=== PATIENT | female | born 1945 | race Caucasian/White ===

== ENCOUNTER → 2023-11-21 | Outpatient (CLI) | payer MEDICARE, SELFPAY ==
[2023-11-21 10:13] LABS: Absolute Lymphocyte Count 2.02 X10^3/uL (0.83-4.51); Absolute Neutrophil Count 5.1 X10^3/uL (2.0-7.7); Basophil# 0.06 X10^3/uL; Basophil% 0.7 % (0-1); Eosinophil# 0.35 X10^3/uL; Eosinophils% 4.4 % (0-5); Hematocrit 43.6 % (37-47); Hemoglobin 14.1 g/dL (12.0-15.0); Lymphocyte # 2.02 X10^3/ul (0.83-4.51); Lymphocyte % 25.2 % (19-41); Mean Corp Hgb Conc 32.3 g/dL (32-36); Mean Corpuscular Hgb 29.2 pg (27.0-32.0); Mean Corpuscular Volume 90.3 fL (81-99); Monocyte% 6.2 % (0-10); NRBC Flagged by Analyzer 0 % (0-5); Neutrophil # 5.06 X10^3/uL (2.7-7.7); Neutrophil % 63.1 % (47-70); Platelet Count 412 K/mm3 (150-450); RBC Distribution Width CV 13.9 % (11.6-14.6); RBC Distribution Width SD 46.3 fl (35.1-43.9); Red Blood Count 4.83 M/mm3 (4.2-5.4)
[2023-11-21 10:53] LABS: ALB/GLOB Ratio 1.2 RATIO (0.9-2.4); AST(SGOT) 14 U/L (15-37); Alanine Aminotransfer ALT/SGPT 12 U/L (13-56); Albumin, Serum 3.8 g/dL (3.2-5.0); Alkaline Phosphatase 101 U/L (45-117); Anion Gap 4 (5-15); BUN 16 mg/dL (7-18); BUN/Creat Ratio 22.2 RATIO (10-20); Calcium,Total 9.7 mg/dL (8.5-10.1); Chloride 108 mmol/L (98-107); Cholesterol 245 mg/dL (200); Creatinine, Serum 0.72 mg/dL (0.55-1.02); EST Glomerular Filtration Rate 83 mL/min (>60); Est Glom Filt Rate - Afr Amer 100 mL/min (>60); Globulin 3.2 g/dL (2.2-4.2); Glucose 91 mg/dL (74-106); High Density Lipoprotein 73 mg/dL; Potassium 4.1 mmol/L (3.5-5.1); Sodium Level 139 mmol/L (136-145); Triglycerides 146 mg/dL; Very Low Density Lipoprotein 29 mg/dL (5-40)
[2023-11-21 10:58] LABS: Vitamin D,25 Hydroxy 45.4 ng/mL
== END | disposition home or self-care (01) ==
PROVIDERS: PCP Nurse Practitioner Family; Referring Provider Nurse Practitioner Family; Visit Provider Nurse Practitioner Family
DX: E55.9 Vitamin D deficiency, unspecified (principal); E78.5 Hyperlipidemia, unspecified; I10 Essential (primary) hypertension
CPT/HCPCS: 36415; 80053; 80061; 82306; 85025

== ENCOUNTER → 2024-03-05 | Outpatient (CLI) | payer MEDICARE, SELFPAY ==
--- NOTE | 2024-03-05 11:44 | BI_ITS ---
MAMMOGRAPHY - BILATERAL SCREENING REASON FOR EXAM: Female, 78 years old. Routine annual screening examination. PERTINENT HISTORY: Non-contributory. TECHNIQUE: Digital bilateral breast karyn (3D mammographic acquisition) in the CC and MLO projections. 2-D mediolateral oblique (MLO) and craniocaudad (CC) views of both breasts were obtained. CAD: Full Field Digital Mammography with Computer Added Detection was performed. COMPARISON: Comparison is made with prior outside examination dated March 04, 2022. FINDINGS: Breast Composition: The breasts are heterogeneously dense, which may obscure small masses. There are no dominant masses or suspicious calcifications. No other significant abnormalities are identified. There has been no significant change since the prior study. BI/SCRN MAMM (CAD)W/KARYN BILAT IMPRESSION: Stable bilateral screening mammogram. Yearly follow-up mammogram recommended. (A) ASSESSMENT CATEGORY: BIRADS Category 1: Negative. A letter regarding these results will be sent to the patient by the facility within 30 days. Approximately 10% of breast cancers are not detected by mammography. A normal mammogram should not delay biopsy of a clinically suspicious abnormality. [id number] Electronically Signed: Roger Terry MD at 12:44 EDT ,
--- OUTSIDE RECORDS SUMMARY | 2024-03-05 12:05 | XMS RPT_ITS | CCD ---
Author Organization [facility] Care Team Providers Care Professional Athlete Name Role Phone JERAMY CORBETT, FERNANDO White [facility] Physicia n FERNANDO EDDY Attending [place] ilFERNANDO Cain Primary Care [place] ilFERNANDO Cain Attending [place] ilable JERAMY CORBETT, FERNANDO [facility] Unava ilable Allergies Allergy Classification Reported Allergen(s) Allergy Type Date of Onset Reaction(s) Facility (4 sources) Aspirin; Translations: [aspirin] Drug Allergy Rash [facility] Medications Current Medications Medication Drug Class(es) Dates Sig (Normalized) Sig (Original) acetaminophen 500 mg oral tablet (4 sources) Start: 02-03-2019 take 1 mg by mouth every six hours Tylenol Extra Strength 500 mg oral tablet mg = tab(s), Oral, q6hr, 0 Refill(s) Start Date: 02/03/19 Status: Ordered Calcium (4 sources) Phosphate Binder, Calcium Start: 02-03-2019 take 1 tablet by mouth twice daily Calcium 600+D oral tablet Dose = 1 tab(s), Oral, BID, 0 Refill(s) Start Date: 02/03/19 Status: Ordered diclofenac sodium 0.01 mg/mg topical gel (4 sources) Nonsteroidal Anti-inflammatory Drug Start: 02-03-2019 diclofenac 1% topical gel = gram(s), Topical, QID, 0 Refill(s) Start Date: 02/03/19 Status: Ordered Start: 02-03-2019 diclofenac 1% topical gel = gram(s), Topical, QID, 0 Refill(s) Start Date: 02/03/19 Status: Ordered omeprazole 20 mg delayed release oral capsule (4 sources) Proton Pump Inhibitor Start: 08-21-2020 End: 04-11-2023 omeprazole 20 mg oral delayed release capsule Dose : 20 mg = 1 cap(s), Oral, qDay, # 90 cap(s), 3 Refill(s), Pharmacy: [facility], 151, cm, 10/03/21 10:33:00 EDT, Height, kg, 10/03/21 10:33:00 EDT, Dosing Weight Start Date: 04/16/22 Stop Date: 04/11/23 Status: Ordered sertraline 50 mg oral tablet (5 sources) Serotonin Reuptake Inhibitor Start: 11-14-2022 sertraline 50 mg ora l tablet Dose : 50 mg = 1 tab(s), Oral, qDay, OK to fill after 02/09/2023, # 90 tab(s), 3 Refill(s), Pharmacy: [facility], 150.4, cm, 11/14/22 9:58:00 EDT, Height, kg, 11/14/22 9:58:00 EDT, Dosing Weight Start Date: 11/14/22 Status: Ordered Start: 09-24-2021 End: 12-23-2021 sertraline 50 mg oral tablet Dose : 50 mg = 1 tab(s), Oral, qDay, # 90 tab(s), 3 Refill(s), Pharmacy: [facility] ([facility]), 151, cm, 10/03/21 10:33:00 EDT, Height, kg, 10/03/21 10:33:00 EDT, Dosing Weight Start Date: 12/04/21 Status: Ordered Start: 09-14-2020 End: 09-09-2021 sertraline 50 mg oral tablet Dose : 50 mg = 1 tab(s), Oral, qDay, # 90 tab(s), 3 Refill(s), Pharmacy: [facility], 151, cm, 08/21/20 10:40:00 EDT, Height, kg, 08/21/20 10:40:00 EDT, Dosing Weight Start Date: 09/14/20 Stop Date: 09/09/21 Status: Ordered Vision Essentials tablets (4 sources) Start: 02-03-2019 Vision Essenti als tablets 0 Refill(s) Start Date: 02/03/19 Status: Ordered Completed/Discontinued Medications Medication Drug Class(es) Dates Sig (Normalized) Sig (Original) meloxicam 7.5 mg oral tablet (4 sources) Nonsteroidal Anti-inflammatory Drug Start: 02-03-2019 End: 05-18-2019 meloxicam 7.5 mg oral tablet Dose : 7.5 mg = 1 tab(s), Oral, qDay, # 90 tab(s), 0 Refill(s) Start Date: 02/03/19 Stop Date: 05/18/19 Status: Ordered Problems Problem Classification Problem Date Documented Da te Episodic/Chronic Anxiety disorders (4 sources) Anxiety 02-02-2019 Chronic Diabetes mellitus without complication (1 source) Blood glucose abnormal; Translations: [Other abnormal glucose] Episodic Disorders of lipid metabolism (5 sources) Hyperlipidemia; Translations: [Hyperlipidemia, unspecified] 02-17-2019 Chronic Esophageal disorders (4 sources) Gastroesophageal reflux disease 02-02-2019 Chronic Osteoporosis (4 sources) Osteoporosis; Translations: [Primary osteoporosis] 02-02-2019 Chronic Other bone disease and musculoskeletal deformities (1 source) Osteopenia 11-14-2022 Episodic Other nutritional; endocrine; and metabolic disorders (4 sources) Underweight 02-17-2019 Episodic Other screening for suspected conditions (not mental disorders or infectious disease) (4 sources) Increased glucose level 02-17-2019 Episodic Other skin disorders (1 source) Lesion of skin of face 05-15-2022 Episodic Spondylosis; intervertebral disc disorders; other back problems (4 sources) Degeneration of intervertebral disc 02-02-2019 Chronic Unclassified (11 sources) Patient encounter status 02-15-2021 Results Test Name Value Interpretation Reference Range Facility .Auto Diffon 11-14-2022 Basophil, Absolute 0.1 10 3/mcL Normal 0.0-0.2 [facility] ([place]) Comment on above: Performed By: #### V IDH, GFR, CBC, ANEU, A1C, CMP, ADIFF, LIPID #### [id number] [place], [place] [address] Basophils/100 WBC (Bld) 0.9 % Normal 0.0-2.5 [facility] ([place]) Comment on above: Performed By: #### V IDH, GFR, CBC, ANEU, A1C, CMP, ADIFF, LIPID #### [address] [address] Eosinophil, Absolute 0.4 10 3/mcL Normal 0.0-0.4 Replaced by [facility] ([place]) Comment on above: Performed By: #### V IDH, GFR, CBC, ANEU, A1C, CMP, ADIFF, LIPID #### [address] [address] Eosinophils/100 WBC (Bld) 3.8 % Normal 0.0-7.0 [facility] ([place]) Comment on above: Performed By: #### V IDH, GFR, CBC, ANEU, A1C, CMP, ADIFF, LIPID #### [address] [address] Lymphocyte, Absolute 2.3 10 3/mcL Normal 0.8-3.9 Replaced by [facility] ([place] Comment on above: Performed By: #### V IDH, GFR, CBC, ANEU, A1C, CMP, ADIFF, LIPID #### [address] [address] Lymphocytes/100 WBC (Bld) 24.6 % Normal 10.0-50.0 [facility] ([place]) Comment on above: Performed By: #### V IDH, GFR, CBC, ANEU, A1C, CMP, ADIFF, LIPID #### [address] [address] Monocyte, Absolute 0.6 10 3/mcL Normal 0.2-1.0 [facility] ([place]) Comment on above: Performed By: #### V IDH, GFR, CBC, ANEU, A1C, CMP, ADIFF, LIPID #### [address] [address] Monocytes/100 WBC (Bld) 6.1 % Normal 1.7-13.0 [facility] ([place]) Comment on above: Performed By: #### V IDH, GFR, CBC, ANEU, A1C, CMP, ADIFF, LIPID #### [address] [address] Neutrophils/100 WBC (Bld) 64.6 % Normal 37.0-80.0 [facility] ([place]) Comment on above: Performed By: #### V IDH, GFR, CBC, ANEU, A1C, CMP, ADIFF, LIPID #### [address] [address] .GFRon 11-14-2022 GFR Non- 66 ml/min/1.73sqm Normal [facility] ([place]) Comment on above: Result Comment: GFR Population mean for , Non- Americans Ages 20-29 = 116 mL/min/1.73 sq.m. Ages 30-39 = 107 mL/min/1.73 sq.m. Ages 40-49 = 99 mL/min/1.73 sq.m. Ages 50-59 = 93 mL/min/1.73 sq.m. Ages 60-69 = 85 mL/min/1.73 sq.m. Ages 70+ = 75 mL/min/1.73 sq.m. Chronic Kidney Disease: Less than 60 mL/min/1.73 square meters End Stage Renal Disease: Less than 15 mL/min/1.73 square meters Performed By: #### V IDH, GFR, CBC, ANEU, A1C, CMP, ADIFF, LIPID #### [address] [address] GFR 81 ml/min/1.73sqm Normal [facility] ([place]) Comment on above: Result Comment: GFR Population mean for , Non- Americans Ages 20-29 = 116 mL/min/1.73 sq.m. Ages 30-39 = 107 mL/min/1.73 sq.m. Ages 40-49 = 99 mL/min/1.73 sq.m. Ages 50-59 = 93 mL/min/1.73 sq.m. Ages 60-69 = 85 mL/min/1.73 sq.m. Ages 70+ = 75 mL/min/1.73 sq.m. Chronic Kidney Disease: Less than 60 mL/min/1.73 square meters End Stage Renal Disease: Less than 15 mL/min/1.73 square meters Performed By: #### V IDH, GFR, CBC, ANEU, A1C, CMP, ADIFF, LIPID #### [place] [id number] .NEUABSon 11-14-2022 Neutrophil, Absolute 6.0 10 3/mcL Normal 2.9-6.2 Replaced by [facility] ([place]) Comment on above: Performed By: #### V IDH, GFR, CBC, ANEU, A1C, CMP, ADIFF, LIPID #### [place] [id number] A1Con 11-14-2022 HbA1c (Bld) [Mass fraction] 5.7 % Normal 4.3-6.4 [facility] ([place]) Comment on above: Performed By: #### V IDH, GFR, CBC, ANEU, A1C, CMP, ADIFF, LIPID #### [place] [address] CBCon 11-14-2022 Erythrocyte distribution width (RBC) [Ratio] 14.4 % Normal 11.5-14.5 [facility] ([place]) Comment on above: Performed By: #### V IDH, GFR, CBC, ANEU, A1C, CMP, ADIFF, LIPID #### [place] [address] Hematocrit (Bld) [Volume fraction] 38.7 % Normal 37.0-47.0 [facility] ([place]) Comment on above: Performed By: #### V IDH, GFR, CBC, ANEU, A1C, CMP, ADIFF, LIPID #### [place] [address] Hgb 13.2 G/dL Normal 12.0-16.0 [facility] ([place]) Comment on above: Performed By: #### V IDH, GFR, CBC, ANEU, A1C, CMP, ADIFF, LIPID #### [place] [address] MCH (RBC) [Entitic mass] 30.6 pg Normal 27.0-31.2 [facility] ([place]) Comment on above: Performed By: #### V IDH, GFR, CBC, ANEU, A1C, CMP, ADIFF, LIPID #### [place] [address] MCHC 34.1 G/dL Normal 33.0-37.0 [facility] ([place]) Comment on above: Performed By: #### V IDH, GFR, CBC, ANEU, A1C, CMP, ADIFF, LIPID #### [address] [address] MCV (RBC) [Entitic vol] 89.8 fL Normal 80.0-94.0 [facility] ([place]) Comment on above: Performed By: #### V IDH, GFR, CBC, ANEU, A1C, CMP, ADIFF, LIPID #### [address] [address] Platelet 415 10 3/mcL High 130-400 [facility] ([place]) Comment on above: Performed By: #### V IDH, GFR, CBC, ANEU, A1C, CMP, ADIFF, LIPID #### [address] [address] Platelet mean volume (Bld) [Entitic vol] 7.1 fL Low 7.4-10.4 [facility] ([place]) Comment on above: Performed By: #### V IDH, GFR, CBC, ANEU, A1C, CMP, ADIFF, LIPID #### [address] [address] RBC 4.30 10 6/mcL Normal 4.20-5.40 [facility] [place] Comment on above: Performed By: #### V IDH, GFR, CBC, ANEU, A1C, CMP, ADIFF, LIPID #### [address] [address] WBC 9.3 10 3/mcL Normal 4.6-10.8 [facility] ([place]) Comment on above: Performed By: #### V IDH, GFR, CBC, ANEU, A1C, CMP, ADIFF, LIPID #### [address] [address] CMPon 11-14-2022 ALT [Catalytic activity/Vol] 12 U/L Low 14-59 [facility] ([place]) Comment on above: Performed By: #### V IDH, GFR, CBC, ANEU, A1C, CMP, ADIFF, LIPID #### [address] [address] Albumin Level 3.7 G/dL Normal 3.4-4.8 [facility] [place] Comment on above: Performed By: #### V IDH, GFR, CBC, ANEU, A1C, CMP, ADIFF, LIPID #### [address] [address] Albumin/Globulin [Mass ratio] 1.3 {ratio} Normal 1.1-2.5 [facility] ([place]) Comment on above: Performed By: #### V IDH, GFR, CBC, ANEU, A1C, CMP, ADIFF, LIPID #### [address] [address] ALP [Catalytic activity/Vol] 107 U/L Normal 40-135 [facility] ([place]) Comment on above: Performed By: #### V IDH, GFR, CBC, ANEU, A1C, CMP, ADIFF, LIPID #### [address] [address] AST [Catalytic activity/Vol] 13 U/L Normal 10-40 [facility] ([place]) Comment on above: Performed By: #### V IDH, GFR, CBC, ANEU, A1C, CMP, ADIFF, LIPID #### [address] [address] Bili Total 0.3 mg/dL Normal 0.2-1.0 [facility] ([place]) Comment on above: Result Comment: Use of this assay is not recommended for patients undergoing treatment with eltrombopag due to the potential for falsely elevated results. Performed By: #### V IDH, GFR, CBC, ANEU, A1C, CMP, ADIFF, LIPID #### [address] [address] BUN/Creatinine Ratio 18 ratio Normal 7-27 [facility] ([place]) Comment on above: Performed By: #### V IDH, GFR, CBC, ANEU, A1C, CMP, ADIFF, LIPID #### [address] [address] Calcium [Mass/Vol] 9.4 mg/dL Normal 8.4-10.2 [facility] ([place]) Comment on above: Performed By: #### V IDH, GFR, CBC, ANEU, A1C, CMP, ADIFF, LIPID #### [address] [address] Chloride [Moles/Vol] 106 mmol/L Normal 98-107 [facility] ([place]) Comment on above: Performed By: #### V IDH, GFR, CBC, ANEU, A1C, CMP, ADIFF, LIPID #### [address] [address] CO2 [Moles/Vol] 27 mmol/L Normal 23-31 [facility] ([place]) Comment on above: Performed By: #### V IDH, GFR, CBC, ANEU, A1C, CMP, ADIFF, LIPID #### [address] [address] Creatinine [Mass/Vol] 0.83 mg/dL Normal 0.55-1.02 [facility] ([place]) Comment on above: Performed By: #### V IDH, GFR, CBC, ANEU, A1C, CMP, ADIFF, LIPID #### [address] [address] Electrolyte Balance 9.0 mEq/L Normal 4.0-15.0 [facility] ([place]) Comment on above: Performed By: #### V IDH, GFR, CBC, ANEU, A1C, CMP, ADIFF, LIPID #### [address] [address] Globulin 2.8 G/dL Normal [facility] ([place]) Comment on above: Performed By: #### V IDH, GFR, CBC, ANEU, A1C, CMP, ADIFF, LIPID #### [address] [address] Glucose [Mass/Vol] 88 mg/dL Normal 83-110 [facility] ([place]) Comment on above: Performed By: #### V IDH, GFR, CBC, ANEU, A1C, CMP, ADIFF, LIPID #### [address] [address] Potassium [Moles/Vol] 4.7 mmol/L Normal 3.5-5.1 [facility] ([place]) Comment on above: Performed By: #### V IDH, GFR, CBC, ANEU, A1C, CMP, ADIFF, LIPID #### [id number] [place], [place] [address] Sodium [Moles/Vol] 142 mmol/L Normal 136-145 [facility] ([place]) Comment on above: Performed By: #### V IDH, GFR, CBC, ANEU, A1C, CMP, ADIFF, LIPID #### [address] [id number] [place], [place] [address] Total Protein 6.5 G/dL Normal 6.4-8.2 [facility] ([place] Comment on above: Performed By: #### V IDH, GFR, CBC, ANEU, A1C, CMP, ADIFF, LIPID #### [address] [address] Urea nitrogen [Mass/Vol] 15 mg/dL Normal 7-18 [facility] ([place]) Comment on above: Performed By: #### V IDH, GFR, CBC, ANEU, A1C, CMP, ADIFF, LIPID #### [address] [address] LABORATORYOrdered By: SYSTEM SYSTEM on 11-14-2022 25-hydroxyvitamin D3 [Mass/Vol] 40.3 ng/mL Invalid Interpretation Code AO ADM SS Albumin BCP dye [Mass/Vol] 3.7 G/dL Invalid Interpretation Code 3.4 - 4.8 G/dL AO ADM SS Albumin/Globulin [Mass ratio] 1.3 {ratio} Invalid Interpretation Code 1.1 - 2.5 ratio AO ADM SS ALP [Catalytic activity/Vol] 107 U/L Invalid Interpretation Code 40 - 135 U/L AO ADM SS ALT With P-5'-P [Catalytic activity/Vol] 12 U/L Invalid Interpretation Code 14 - 59 U/L AO ADM SS AST With P-5'-P [Catalytic activity/Vol] 13 U/L Invalid Interpretation Code 10 - 40 U/L AO ADM SS Basophil, Absolute 0.1 103/mcL Invalid Interpretation Code 0.0 - 0.2 10^3/mcL AO Workflow SS Basophils/100 WBC (Bld) 0.9 % Invalid Interpretation Code 0.0 - 2.5 % AO Workflow SS Bilirubin [Mass/Vol] 0.3 mg/dL Invalid Interpretation Code 0.2 - 1.0 mg/dL AO ADM SS Calcium [Mass/Vol] 9.4 mg/dL Invalid Interpretation Code 8.4 - 10.2 mg/dL AO ADM SS Chloride [Moles/Vol] 106 mmol/L Invalid Interpretation Code 98 - 107 mmol/L AO ADM SS CO2 [Moles/Vol] 27 mmol/L Invalid Interpretation Code 23 - 31 mmol/L AO ADM SS Creatinine [Mass/Vol] 0.83 mg/dL Invalid Interpretation Code 0.55 - 1.02 mg/dL AO ADM SS Electrolyte Balance 9.0 mEq/L Invalid Interpretation Code 4.0 - 15.0 mEq/L AO ADM SS Eosinophil, Absolute 0.4 103/mcL Invalid Interpretation Code 0.0 - 0.4 10^3/mcL AO Workflow SS Eosinophils/100 WBC (Bld) 3.8 % Invalid Interpretation Code 0.0 - 7.0 % AO Workflow SS Erythrocyte distribution width (RBC) [Ratio] 14.4 % Invalid Interpretation Code 11.5 - 14.5 % AO Workflow SS GFR/1.73 sq M.predicted among blacks MDRD (S/P/Bld) [Vol rate/Area] 81 ml/min/1.73sqm Invalid Interpretation Code AO Chemistry S GFR/1.73 sq M.predicted among non-blacks MDRD (S/P/Bld) [Vol rate/Area] 66 ml/min/1.73sqm Invalid Interpretation Code AO Chemistry S Globulin 2.8 G/dL Invalid Interpretation Code AO ADM SS Glucose [Mass/Vol] 88 mg/dL Invalid Interpretation Code 83 - 110 mg/dL AO ADM SS HbA1c (Bld) [Mass fraction] 5.7 % Invalid Interpretation Code 4.3 - 6.4 % AO ADM SS Hematocrit (Bld) [Volume fraction] 38.7 % Invalid Interpretation Code 37.0 - 47.0 % AO Workflow SS Hemoglobin (Bld) [Mass/Vol] 13.2 G/dL Invalid Interpretation Code 12.0 - 16.0 G/dL AO Workflow SS Lymphocyte, Absolute 2.3 103/mcL Invalid Interpretation Code 0.8 - 3.9 10^3/mcL AO Workflow SS Lymphocytes/100 WBC (Bld) 24.6 % Invalid Interpretation Code 10.0 - 50.0 % AO Workflow SS MCH (RBC) [Entitic mass] 30.6 pg Invalid Interpretation Code 27.0 - 31.2 pg AO Workflow SS MCHC 34.1 G/dL Invalid Interpretation Code 33.0 - 37.0 G/dL AO Workflow SS MCV (RBC) [Entitic vol] 89.8 fL Invalid Interpretation Code 80.0 - 94.0 fL AO Workflow SS Monocyte, Absolute 0.6 103/mcL Invalid Interpretation Code 0.2 - 1.0 10^3/mcL AO Workflow SS Monocytes/100 WBC (Bld) 6.1 % Invalid Interpretation Code 1.7 - 13.0 % AO Workflow SS Neutrophil, Absolute 6.0 103/mcL Invalid Interpretation Code 2.9 - 6.2 10^3/mcL AO Workflow SS Neutrophils/100 WBC (Bld) 64.6 % Invalid Interpretation Code 37.0 - 80.0 % AO Workflow SS Platelet mean volume (Bld) [Entitic vol] 7.1 fL Invalid Interpretation Code 7.4 - 10.4 fL AO Workflow SS Platelets (Bld) [#/Vol] 415 103/mcL Invalid Interpretation Code 130 - 400 10^3/mcL AO Workflow SS Potassium [Moles/Vol] 4.7 mmol/L Invalid Interpretation Code 3.5 - 5.1 mmol/L AO ADM SS Protein [Mass/Vol] 6.5 G/dL Invalid Interpretation Code 6.4 - 8.2 G/dL AO ADM SS RBC (Bld) [#/Vol] 4.30 106/mcL Invalid Interpretation Code 4.20 - 5.40 10^6/mcL AO Workflow SS Sodium [Moles/Vol] 142 mmol/L Invalid Interpretation Code 136 - 145 mmol/L AO ADM SS Urea nitrogen [Mass/Vol] 15 mg/dL Invalid Interpretation Code 7 - 18 mg/dL AO ADM SS Urea nitrogen/Creatinine [Mass ratio] 18 ratio Invalid Interpretation Code 7 - 27 ratio AO ADM SS WBC (Bld) [#/Vol] 9.3 103/mcL Invalid Interpretation Code 4.6 - 10.8 10^3/mcL AO Workflow SS LABORATORYOrdered By: Melissa Singleton on 11-14-2022 Cholesterol [Mass/Vol] 220 mg/dL Invalid Interpretation Code 0 - 200 mg/dL AO ADM SS Cholesterol in HDL [Mass/Vol] 59 mg/dL Invalid Interpretation Code 40 - 60 mg/dL AO ADM SS Cholesterol in LDL [Mass/Vol] 121 mg/dL Invalid Interpretation Code 0 - 130 mg/dL AO ADM SS Triglyceride [Mass/Vol] 202 mg/dL Invalid Interpretation Code 0 - 150 mg/dL AO ADM SS LIPIDon 11-14-2022 Cholesterol [Mass/Vol] 220 mg/dL High 0-200 [facility] ([place]) Comment on above: Result Comment: Chol esterol Reference Interval: Less than 200 Desirable 200-239 Borderline high risk 240 and above High risk Performed By: #### V IDH, GFR, CBC, ANEU, A1C, CMP, ADIFF, LIPID #### [address] [address] Cholesterol in HDL [Mass/Vol] 59 mg/dL Normal 40-60 [facility] ([place]) Comment on above: Performed By: #### V IDH, GFR, CBC, ANEU, A1C, CMP, ADIFF, LIPID #### [address] [address] Cholesterol in LDL [Mass/Vol] 121 mg/dL Normal 0-130 [facility] ([place]) Comment on above: Performed By: #### V IDH, GFR, CBC, ANEU, A1C, CMP, ADIFF, LIPID #### [address] [address] Triglyceride [Mass/Vol] 202 mg/dL High 0-150 [facility] ([place]) Comment on above: Result Comment: Trig lyceride Reference Interval: Less than 150 Normal 150-199 Borderline high risk 200-499 High risk 500 or higher Very high risk Performed By: #### V IDH, GFR, CBC, ANEU, A1C, CMP, ADIFF, LIPID #### [address] [address] VIDHon 11-14-2022 Vit. D 25-Hydroxy 40.3 ng/mL Normal [facility] ([place]) Comment on above: Result Comment: Inte rpretive Values Based on Total 25(OH) Vitamin D: Deficient <20 ng/mL Insufficient 20 - <30 ng/mL Sufficient 30-100 ng/mL Performed By: #### V IDH, GFR, CBC, ANEU, A1C, CMP, ADIFF, LIPID #### [address] [address] BD BONE DENSITY DEXA AXIAL S Anabel 03-04-2022 BD BONE DENSITY DEXA AXIAL SKELETON ORIGINAL EXAMINATION: BONE DENSITOMETRY 03/04/2022 10:41 am TECHNIQUE: A bone density dual x-ray absorptiometry (DEXA) scan was performed of the lumbar spine and left hip on a Hologic system. COMPARISON: 10/26/2018. HISTORY: ORDERING SYSTEM PROVIDED HISTORY: Reason for Exam: Osteoporosis Screening Postmenopausal. FINDINGS: LEFT HIP: The bone mineral density in the total hip is measured at 0.771 g/cm2 corresponding to a T-score of -1.4. This is within the osteopenic range by WHO criteria. This represents a 0.5% decrease in bone mineralization since the prior study. The bone mineral density of the femoral neck is measured at 0.631 g/cm2 corresponding to a T-score of -2.0. This is within the osteopenic range by WHO criteria. Lumbar Spine: The bone mineral density of the lumbar spine, L1 through L4 is measured at 0.849 g/cm2 corresponding to a T-score of -1.8. This is within the osteopenic range by WHO criteria. This represents a 10% decrease in bone mineralization since the prior study. 10 year fracture risk, FRAX: Not reported because the patient reports prior hip or vertebral fracture and treatment for osteoporosis. IMPRESSION: Osteopenia by WHO criteria. Changes in bone mineralization as detailed above. 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 2D standard and 3D tomosynthesis combination imaging performed through both breasts in the MLO and CC projection. Computer aided detection was utilized in the interpretation of this exam. COMPARISON: Prior mammography dated 02/26/2021, 02/02/2020, 10/26/2018. HISTORY: Breast cancer screening. FINDINGS: BREAST DENSITY: Heterogeneously dense. There are no significant masses or calcifications. There has been no significant interval change. IMPRESSION: No mammographic evidence of malignancy. Continued screening with annual mammograms is recommended. BIRADS: MAMMOGRAM BI-RADS: 1: Negative RECALL: 1 year screening RECALL TYPE: mammo LETTER SENT: Normal BI-RADS 1 and 2 Interpreted by: Ulises Garrido MD Preliminary Report By: Ulises Garrido MD Electronically signed By Ulises Garrido MD Dictated Date: 03/08/2022 3:04:51 PM Prelim Date: 03/08/2022 3:11:07 PM Sign Date: 03/08/2022 3:11:07 PM Ordering Provider: FERNANDO DESHPANDE Land Surveyor Assistant: SKYLAR CÁRDENAS RT (R) (M) (CT) letter sent: Normal BI-RADS 1 and 2 Mammogram BI-RADS: 1 Negative Normal [facility] ([place]) LABORATORYOrdered By: Avery Packer on 10-03-2021 Albumin BCP dye [Mass/Vol] 3.9 G/dL Invalid Interpretation Code 3.4 - 4.8 G/dL AO ADM SS Albumin/Globulin [Mass ratio] 1.3 {ratio} Invalid Interpretation Code 1.1 - 2.5 ratio AO ADM SS ALP [Catalytic activity/Vol] 106 U/L Invalid Interpretation Code 40 - 135 U/L AO ADM SS ALT With P-5'-P [Catalytic activity/Vol] 15 U/L Invalid Interpretation Code 14 - 59 U/L AO ADM SS AST With P-5'-P [Catalytic activity/Vol] 14 U/L Invalid Interpretation Code 10 - 40 U/L AO ADM SS Basophil, Absolute 0.1 103/mcL Invalid Interpretation Code 0.0 - 0.2 10^3/mcL AO Workflow SS Basophils/100 WBC (Bld) 0.7 % Invalid Interpretation Code 0.0 - 2.5 % AO Workflow SS Bilirubin [Mass/Vol] 0.3 mg/dL Invalid Interpretation Code 0.2 - 1.0 mg/dL AO ADM SS Calcium [Mass/Vol] 9.5 mg/dL Invalid Interpretation Code 8.4 - 10.2 mg/dL AO ADM SS Chloride [Moles/Vol] 107 mmol/L Invalid Interpretation Code 98 - 107 mmol/L AO ADM SS Cholesterol [Mass/Vol] 271 mg/dL Invalid Interpretation Code 0 - 200 mg/dL AO ADM SS Cholesterol in HDL [Mass/Vol] 73 mg/dL Invalid Interpretation Code 40 - 60 mg/dL AO ADM SS Cholesterol in LDL [Mass/Vol] 162 mg/dL Invalid Interpretation Code 0 - 130 mg/dL AO ADM SS CO2 [Moles/Vol] 24 mmol/L Invalid Interpretation Code 23 - 31 mmol/L AO ADM SS Creatinine [Mass/Vol] 0.82 mg/dL Invalid Interpretation Code 0.55 - 1.02 mg/dL AO ADM SS Electrolyte Balance 10.0 mEq/L Invalid Interpretation Code 4.0 - 15.0 mEq/L AO ADM SS Eosinophil, Absolute 0.2 103/mcL Invalid Interpretation Code 0.0 - 0.4 10^3/mcL AO Workflow SS Eosinophils/100 WBC (Bld) 2.6 % Invalid Interpretation Code 0.0 - 7.0 % AO Workflow SS Erythrocyte distribution width (RBC) [Ratio] 14.6 % Invalid Interpretation Code 11.5 - 14.5 % AO Workflow SS Globulin 3.0 G/dL Invalid Interpretation Code AO ADM SS Glucose [Mass/Vol] 94 mg/dL Invalid Interpretation Code 83 - 110 mg/dL AO ADM SS Hematocrit (Bld) [Volume fraction] 41.6 % Invalid Interpretation Code 37.0 - 47.0 % AO Workflow SS Hgb 14.1 G/dL Invalid Interpretation Code 12.0 - 16.0 G/dL AO Workflow SS Lymphocyte, Absolute 2.0 103/mcL Invalid Interpretation Code 0.8 - 3.9 10^3/mcL AO Workflow SS Lymphocytes/100 WBC (Bld) 23.7 % Invalid Interpretation Code 10.0 - 50.0 % AO Workflow SS MCH (RBC) [Entitic mass] 30.5 pg Invalid Interpretation Code 27.0 - 31.2 pg AO Workflow SS MCHC 33.9 G/dL Invalid Interpretation Code 33.0 - 37.0 G/dL AO Workflow SS MCV (RBC) [Entitic vol] 90.0 fL Invalid Interpretation Code 80.0 - 94.0 fL AO Workflow SS Monocyte, Absolute 0.4 103/mcL Invalid Interpretation Code 0.2 - 1.0 10^3/mcL AO Workflow SS Monocytes/100 WBC (Bld) 5.2 % Invalid Interpretation Code 1.7 - 13.0 % AO Workflow SS Neutrophil, Absolute 5.8 103/mcL Invalid Interpretation Code 2.9 - 6.2 10^3/mcL AO Workflow SS Neutrophils/100 WBC (Bld) 67.8 % Invalid Interpretation Code 37.0 - 80.0 % AO Workflow SS Platelet 398 103/mcL Invalid Interpretation Code 130 - 400 10^3/mcL AO Workflow SS Platelet mean volume (Bld) [Entitic vol] 7.0 fL Invalid Interpretation Code 7.4 - 10.4 fL AO Workflow SS Potassium [Moles/Vol] 4.5 mmol/L Invalid Interpretation Code 3.5 - 5.1 mmol/L AO ADM SS Protein [Mass/Vol] 6.9 G/dL Invalid Interpretation Code 6.4 - 8.2 G/dL AO ADM SS RBC 4.62 106/mcL Invalid Interpretation Code 4.20 - 5.40 10^6/mcL AO Workflow SS Sodium [Moles/Vol] 141 mmol/L Invalid Interpretation Code 136 - 145 mmol/L AO ADM SS Triglyceride [Mass/Vol] 180 mg/dL Invalid Interpretation Code 0 - 150 mg/dL AO ADM SS Urea nitrogen [Mass/Vol] 16 mg/dL Invalid Interpretation Code 7 - 18 mg/dL AO ADM SS Urea nitrogen/Creatinine [Mass ratio] 20 ratio Invalid Interpretation Code 7 - 27 ratio AO ADM SS WBC 8.5 103/mcL Invalid Interpretation Code 4.6 - 10.8 10^3/mcL AO Workflow SS LABORATORYOrdered By: SYSTEM SYSTEM on 10-03-2021 GFR 82 ml/min/1.73sqm Invalid Interpretation Code AO Chemistry S GFR Non- 68 ml/min/1.73sqm Invalid Interpretation Code AO Chemistry S Monocyte distribution width Auto (Bld) [Entitic vol] Not Performed 1 *NA* (10/03/21 11:39 AM) Invalid Interpretation Code 0.00 - 20.00 AO Hematology S Comment on above: Result Comment: MDW testing performed only on adult ER patients between the ages of 18-89 years. Encounters Encounter Date Encounter Type Care Provider Facility Start: 11-14-2022 End: 11-15-2022 ambulatory FERNANDO DESHPANDE [employer]LE[employer] SCIENTIST Facility:B Start: 11-14-2022 End: 11-14-2022 Patient encounter procedure FERNANDO S JERAYM SOAP MAKER[employer]SLEEP SCIENTIST [facility] Start: 03-04-2022 End: 03-05-2022 ambulatory FERNANDO Christopher JERAMY SO[employer] MA[employer]SLEEP SCIENTIST Facility:[facility] Start: 03-04-2022 End: 03-04-2022 Patient encounter procedure FERNANDO White JERAMY SOAP MAK[employer]SLEEP SCIENTIST [facility] Start: 10-03-2021 End: 10-03-2021 Patient encounter procedure FERNANDO DESHPANDE SO[employer] MAK[employer]SLEEP SCIENTIST [facility] Start: 02-26-2021 End: 02-26-2021 Patient encounter procedure FERNANDO DESHPANDE [employer]SLEEP SCIENTIST [facility] Procedures Date Procedure Procedure Detail Performing Clinician Start: 10-23-2017 Mammography FERNANDO JEREZ TMER [employer]LE[employer] SCIENTIST Start: 10-18-2016 Bone density scan LUISA DESHPANDE [employer]SLEEP SCIENTIST Start: 04-11-2011 Colonoscopy FERNANDO JEREZ TMER [employer]SLEEP SCIENTIST Comment on above: Hemorrhoid disease Start: 04-24-2010 Total replacement of hip FERNANDO DESHPANDE [employer]LEEP SCIENTIST Start: 05-12-2001 Carpal tunnel syndro me of right wrist (disorder) FERNANDO DESHPANDE [employer]SLEEP SCIENTIST Comment on above: [facility] Start: 05-12-1980 section CHENCHO DESHPANDE [employer] MAK[employer]SLEEP SCIENTIST Start: 05-12-1973 section CHENCHO DESHPANDE [employer]SLEEP SCIENTIST Cyst (disorder) FERNANDO ALEGRIA MARLIN [employer]SLEEP SCIENTIST Comment on above: Removal of cysts fro m legs/arms. Had many sx as a child to remove cysts, legsarms did not develope properly. Tonsillectomy FERNANDO DESHPANDE [employer]SLEEP SCIENTIST Comment on above: as a child Immunizations Immunization Date Immunization Notes Care Provider Fa [facility] 02-21-2022 influenza virus vacc ine, unspecified formulation FERNANDO DESHPANDE [employer]SLEEP SCIENTIST [facility] [place] 12-06-2021 SARS-CoV-2 mRNA (eojkpyfgfqo-pfxx-zpvipi e) vaccine FERNANDO DESHPANDE [employer]SLEEP SCIENTIST [facility] 03-05-2021 SARS-CoV-2 mRNA (tozinameran) vaccine FERNANDO DESHPANDE [employer]LEEP SCIENTIST [facility] 02-05-2021 influenza virus vacc ine, unspecified formulation FERNANDO DESHPANDE [employer]SLEEP SCIENTIST [facility] 07-07-2020 SARS-CoV-2 (COVID-19 ) mRNA BNT-162b2 vax FERNANDO DESHPANDE [employer]LEEP SCIENTIST [facility] 06-18-2020 SARS-CoV-2 (COVID-19 ) mRNA BNT-162b2 vax FERNANDO DESHPANDE SO[employer]SLEEP SCIENTIST [facility] Comment on above: Result Comment: 2020: [id number] 05-24-2020 pneumococcal polysaccharide vaccine, 23 valent; Translations: [Pneumovax 23] FERNANDO FALKMER [employer]SLEEP SCIENTIST [facility] 01-31-2020 influenza, injectabl e, quadrivalent, preservative free; Translations: [Fluarix PF Quadrivalent ] FERNANDO FALKMER [employer]SLEEP SCIENTIST [facility] 01-27-2019 influenza virus vacc ine, unspecified formulation FERNANDO DESHPANDE [employer]SLEEP SCIENTIST [facility] 01-21-2018 influenza virus vacc ine, unspecified formulation FERNANDO DESHPANDE SO[employer]SLEEP SCIENTIST [facility] Comment on above: Result Comment: [01/11] Quad 01-20-2017 influenza virus vacc ine, unspecified formulation FERNANDO FALKMER [employer]SLEEP SCIENTIST [facility] 05-12-2016 influenza virus vacc ine, unspecified formulation FERNANDO FALKMER SO[employer] MAK[employer]SLEEP SCIENTIST [facility] 01-30-2016 influenza virus vacc ine, unspecified formulation FERNANDO FALKMER [employer]SLEEP SCIENTIST [facility] 02-14-2015 influenza virus vacc ine, unspecified formulation FERNANDO FALKMER [employer] MAK[employer]SLEEP SCIENTIST [facility] 08-30-2014 pneumococcal conjuga te vaccine, 13 valent FERNANDO JERAMY [employer]SLEEP SCIENTIST [facility] 01-10-2014 influenza virus vacc ine, unspecified formulation FERNANDO FALKMER SO[employer] MAK[employer]SLEEP SCIENTIST [facility] 02-03-2013 influenza virus vacc ine, unspecified formulation FERNANDO FALKMER SO[employer] MAK[employer]SLEEP SCIENTIST [facility] 02-06-2012 influenza virus vacc ine, unspecified formulation FERNANDO FALKMER [employer]SLEEP SCIENTIST [facility] 04-11-2010 pneumococcal polysaccharide vaccine, 23 valent FERNANDO FALKMER [employer]SLEEP SCIENTIST [facility] 04-11-2010 tetanus toxoid, redu bibi diphtheria toxoid, and acellular pertussis vaccine, adsorbed FERNANDO FALKMER SO[employer]SLEEP SCIENTIST [facility] 04-10-2010 pneumococcal polysaccharide vaccine, 23 valent FERNANDO FALKMER SO[employer] MAK[employer]SLEEP SCIENTIST [facility] 04-10-2010 tetanus toxoid, redu bibi diphtheria toxoid, and acellular pertussis vaccine, adsorbed FERNANDO FALKMER SO[employer] MAKER[employer]SLEEP SCIENTIST [facility] Payers Date Payer Category Payer Private Health Insurance [id number] 1945 Unknown [id number] 1945 Unknown [id number] Social History Date Type Detail Facility Start: 02-17-2019 Never smoked t obacco (finding) [facility] Comment on above: no smoke exposure Sex Assigned At Female [facility] Clinical Note 03-04-2022 Note Date & Type Note Facility 03-04-2022 Note ORIGINAL EXAMINATION: BONE DENSITOMETRY 03/04/2022 10:41 am TECHNIQUE: A bone density dual x-ray absorptiometry (DEXA) scan was performed of the lumbar spine and left hip on a [employer] system. COMPARISON: 10/26/2018. HISTORY: ORDERING SYSTEM PROVIDED HISTORY: Reason for Exam: Osteoporosis Screening Postmenopausal. FINDINGS: LEFT HIP: The bone mineral density in the total hip is measured at 0.771 g/cm2 corresponding to a T-score of -1.4. This is within the osteopenic range by WHO criteria. This represents a 0.5% decrease in bone mineralization since the prior study. The bone mineral density of the femoral neck is measured at 0.631 g/cm2 corresponding to a T-score of -2.0. This is within the osteopenic range by WHO criteria. Lumbar Spine: The bone mineral density of the lumbar spine, L1 through L4 is measured at 0.849 g/cm2 corresponding to a T-score of -1.8. This is within the osteopenic range by WHO criteria. This represents a 10% decrease in bone mineralization since the prior study. 10 year fracture risk, FRAX: Not reported because the patient reports prior hip or vertebral fracture and treatment for osteoporosis. IMPRESSION: Osteopenia by WHO criteria. Changes in bone mineralization as detailed above. Interpreted by: Radha Rosenberg Preliminary Report By: Radha Rosenberg Electronically signed By Radha Rosenberg Dictated Date: 03/04/2022 11:51:35 AM Prelim Date: 03/04/2022 11:55:25 AM Sign Date: 03/04/2022 11:55:25 AM Ordering Provider: FERNANDO DESHPANDE [facility] Clinical Note 03-04-2022 Note Date & Type Note Facility 03-04-2022 Note ORIGINAL EXAMINATION: BONE DENSITOMETRY 03/04/2022 10:41 am TECHNIQUE: A bone density dual x-ray absorptiometry (DEXA) scan was performed of the lumbar spine and left hip on a [employer] system. COMPARISON: 10/26/2018. HISTORY: ORDERING SYSTEM PROVIDED HISTORY: Reason for Exam: Osteoporosis Screening Postmenopausal. FINDINGS: LEFT HIP: The bone mineral density in the total hip is measured at 0.771 g/cm2 corresponding to a T-score of -1.4. This is within the osteopenic range by WHO criteria. This represents a 0.5% decrease in bone mineralization since the prior study. The bone mineral density of the femoral neck is measured at 0.631 g/cm2 corresponding to a T-score of -2.0. This is within the osteopenic range by WHO criteria. Lumbar Spine: The bone mineral density of the lumbar spine, L1 through L4 is measured at 0.849 g/cm2 corresponding to a T-score of -1.8. This is within the osteopenic range by WHO criteria. This represents a 10% decrease in bone mineralization since the prior study. 10 year fracture risk, FRAX: Not reported because the patient reports prior hip or vertebral fracture and treatment for osteoporosis. IMPRESSION: Osteopenia by WHO criteria. Changes in bone mineralization as detailed above. Interpreted by: Radha Rosenberg Preliminary Report By: Radha Rosenberg Electronically signed By Radha Rosenberg Dictated Date: 03/04/2022 11:51:35 AM Prelim Date: 03/04/2022 11:55:25 AM Sign Date: 03/04/2022 11:55:25 AM Ordering Provider: FERNANDO DESHPANDE [facility] Evaluation + Plan note 10-03-2021 Radiology Note Date & Type Note Facility 10-03-2021 Evaluation + Plan note Future Scheduled TestsMA Mammo Screening Bilateral w/ Christiano 10/03/21BD Bone Density DEXA Axial Skeleton 10/03/21 [facility] Evaluation + Plan note 06-10-2020 Laboratory Note Date & Type Note Facility 06-10-2020 Evaluation + Plan note Future Scheduled TestsLipid Profile 06/10/20Complete Metabolic Panel 06/10/20 [facility] Evaluation + Plan note Note Date & Type Note Facility Evaluation + Plan note Future Appointments Appointment Date:05/15/2023 10:00:00 AM Scheduled Provider:FERNANDO DESHPANDE Location:[facility] Appointment Type:PC OV [facility] Hospital course Narrative Note Date & Type Note Facility Hospital course Narrative No data available for this section [facility] Hospital Discharge instructions Note Date & Type Note Facility Hospital Discharge instructions No data available for this section [facility] Progress note Note Date & Type Note Facility Progress note No data available for this section [facility] Summary Purpose Family History No Family History Records Found Advance Directives No Advanced Directives Records Found Additional Source Comments Care Team (unrecognized sect ion and content) Personnel Name: FERNANDO DESHPANDE Address: [address] Care Team Personnel Name: FERNANDO DESHPANDE Position: P4 Advanced Mail Room Clerk Member Role: Primary Care Physician Address: Address: [address] [place] [address] Care Team Related Persons Name: OSCAR PADRON Care Team (unrecognized sect ion and content) Care Team Personnel Name: FERNANDO DESHPANDE Position: P4 Advanced Practice Nurse Member Role: Primary Care Physician Address: Address: [address] [place] [address] Care Team Related Persons Name: OSCAR PADRON INFORMATION SOURCE (unrecogn ized section and content) DATE CREATED AUTHOR 11/15/2022 [facility] patelation ([place]) FOR RECORDS PERTAINING TO PATIENTS WHO ARE OR HAVE BEEN ENROLLED IN A CHEMICAL DEPENDENCY/SUBSTANCEABUSE PROGRAM, SOME INFORMATION MAY BE OMITTED. This clinical summary was aggregated from multiple sources. Caution should be exercised in using it in the provision of clinical care. This summary normalizes information from multiple sources, and as a consequence, information in this document may materially change the coding, format and clinical context of patient data. In addition, data may be omitted in some cases. CLINICAL DECISIONS SHOULD BE BASED ON THE PRIMARY CLINICAL RECORDS. [facility]. provides no warranty or guarantee of the accuracy or completeness of information in this document.
== END | disposition home or self-care (01) ==
LOC: OPBI 11:42
PROVIDERS: PCP Nurse Practitioner Family; Referring Provider Nurse Practitioner Family; Visit Provider Nurse Practitioner Family
DX: Z12.31 Encounter for screening mammogram for malignant neoplasm of breast (principal)
CPT/HCPCS: 77063; 77067

== ENCOUNTER → 2024-11-19 | Outpatient (CLI) | payer MEDICARE, SELFPAY ==
[2024-11-19 12:44] LABS: Hematocrit 42.0 % (37-47); Hemoglobin 13.9 g/dL (12.0-15.0); Immature Granulocytes Count 0.060 X10^3/uL (0.0-0.0); Mean Corp Hgb Conc 33.1 g/dL (32-36); Mean Corpuscular Volume 92.3 fL (81-99); Mean Platelet Vol. 9.3 fl (6.2-12.0); NRBC Flagged by Analyzer 0 % (0-5); Platelet Count 417 K/mm3 (150-450); RBC Distribution Width CV 13.4 % (11.6-14.6); RBC Distribution Width SD 45.9 fl (35.1-43.9); Red Blood Count 4.55 M/mm3 (4.2-5.4); White Blood Count 10.6 K/mm3 (4.4-11.0)
[2024-11-19 13:33] LABS: AST(SGOT) 18 U/L (<=31); Alanine Aminotransfer ALT/SGPT 7 U/L (<=34); Albumin, Serum 4.2 g/dL (3.4-4.8); Alkaline Phosphatase 98 U/L (35-104); Anion Gap 12 (5-15); BUN 16 mg/dL (4-19); BUN/Creat Ratio 18.4 RATIO (10-20); Calcium,Total 9.7 mg/dL (7.6-11.0); Carbon Dioxide 21.5 mmol/L (21.0-32.0); Chloride 105 mmol/L (98-108); Cholesterol 256 mg/dL (<=200); Globulin 2.8 g/dL (2.2-4.2); Glucose 91 mg/dL (70-99); Low Density Lipoprotein Calc. 155 mg/dL; Potassium 4.2 mmol/L (3.3-5.1); Triglycerides 198 mg/dL; Very Low Density Lipoprotein 40 mg/dL (5-40); Vitamin D,25 Hydroxy 52.5 ng/mL (30-100); cholesterol:hdl ratio screen 4.14
== END | disposition home or self-care (01) ==
PROVIDERS: PCP Nurse Practitioner Family; Visit Provider Nurse Practitioner Family
DX: E78.5 Hyperlipidemia, unspecified (principal); E55.9 Vitamin D deficiency, unspecified; I10 Essential (primary) hypertension
CPT/HCPCS: 36415; 80053; 80061; 82306; 85025

== ENCOUNTER → 2025-03-09 | Outpatient (CLI) | payer MEDICARE, SELFPAY ==
--- NOTE | 2025-03-09 09:49 | BI_ITS ---
EXAM: BI/SCRN MAMM (CAD)W/KARYN BILAT
--- NOTE | 2025-03-09 09:51 | BD_ITS ---
PROCEDURE: BD/Dexa Bone Density Study
== END | disposition home or self-care (01) ==
LOC: OPBD 09:48
PROVIDERS: PCP Nurse Practitioner Family; Referring Provider Nurse Practitioner Family; Visit Provider Nurse Practitioner Family
DX: Z12.31 Encounter for screening mammogram for malignant neoplasm of breast (principal); M81.0 Age-related osteoporosis without current pathological fracture
CPT/HCPCS: 77063; 77067; 77080